=== PATIENT | male | born 1970 | race Caucasian/White ===

== ENCOUNTER 2018-03-24 12:20 | Outpatient (CLI) | payer MEDICAID | END 2018-03-24 12:21 | disposition home or self-care (01) | LOC: C.RADIC 12:20 | DX: R06.02 Shortness of breath (principal) ==

== ENCOUNTER 2018-04-19 15:45 | Outpatient (CLI) | payer MEDICAID | END 2018-04-19 15:46 | disposition home or self-care (01) | LOC: C.USIC 15:45 | DX: R31.9 Hematuria, unspecified (principal) ==